=== PATIENT | male | born 1995 | race Caucasian/White ===

== ENCOUNTER 2017-07-15 12:15 | Emergency (ER) | payer MEDICAID ==
[~2017-07-15] VITALS: Ht 185.4 cm; Wt 72.7 kg
[~2017-07-15 12:15] MED LIST: LORTA5 PO
[2017-07-15 12:16] VITALS: BP 116/64; PULSE 89; RESP 18; TEMP 98.5; O2SAT 98
[2017-07-15] MEDS ORDERED: ONDANSETRON ODT 4 MG TAB PO ONE (12:45)
--- NOTE | 2017-07-15 12:56 | PD ---
HPI Chief Complaint: Cold / Flu Symptoms Time Seen by Provider: 12:41 Travel History International Travel<30 days: No Contact w/Intl Traveler<30days: No Traveled to known affect area: No History of Present Illness HPI 21-year-old male brought in with his mom for 2 day history of fever, chills, cough, body aches, and vomiting last night and this morning. Patient states it started Saturday with high fever although he does not know how high, and progressed until he is today. States he has not been able to keep anything down today, but he was able to take ibuprofen at 10:00 this morning. Patient currently is afebrile. He has no specific abdominal pain he continues to feel nauseous. He has a dry hacking cough but otherwise no difficulty breathing. He has no known drug allergies. [facility] Past Medical History Medical History: Denies Significant Hx Developmental Delay: No Immunizations Current: Yes Social History Alcohol Use: No Tobacco Use: No Substance Use: No Allergies-Medications (Allergen,Severity, Reaction): Coded Allergies: No Known Allergies (Unverified , 04/22/15) Reported Meds & Prescriptions Reported Meds & Active Scripts Active No Active Prescriptions or Reported Medications Review of Systems Except as stated in HPI: all other systems reviewed are Neg General / Constitutional: Positive: Fever, Chills Eyes: No: Visual changes HENT: Positive: Headaches, Sore Throat, Rhinitis, Rhinorrhea, Congestion, No: Vertigo, Lightheadedness, Nosebleed, Neck Stiffness, Neck Pain, Dental Difficulties, Earache Cardiovascular: No: Chest Pain or Discomfort Respiratory: Positive: Cough, No: Shortness of Breath, Wheezing Gastrointestinal: Positive: Nausea, Vomiting, No: Diarrhea, Abdominal Pain Genitourinary: No: Dysuria Musculoskeletal: No: Pain Skin: No Rash Neurologic: No: Weakness Psychiatric: No: Depression Endocrine: No: Polydipsia Hematologic/Lymphatic: No: Easy Bruising Physical Exam Narrative GENERAL: Patient appears ill but not septic SKIN: Warm and dry. Mild decreased pallor. No diaphoresis. No rash. Normal turgor. HEAD: Atraumatic. Normocephalic. EYES: Pupils equal and round. No scleral icterus. No injection or drainage. ENT: No nasal bleeding, whitish clear nasal discharge. Mucous membranes pink and moist. Posterior pharynx is unremarkable. No significant tonsillitis. Uvula is midline. TMs are clear bilaterally. NECK: Trachea midline. Supple and nontender. CARDIOVASCULAR: Regular rate and rhythm. RESPIRATORY: No accessory muscle use. Clear to auscultation. Breath sounds equal bilaterally. GASTROINTESTINAL: Abdomen soft, non-tender, nondistended. Hepatic and splenic margins not palpable. MUSCULOSKELETAL: Extremities without clubbing, cyanosis, or edema. No obvious deformities. NEUROLOGICAL: Awake and alert. No obvious cranial nerve deficits. Motor grossly within normal limits. Five out of 5 muscle strength in the arms and legs. Normal speech. PSYCHIATRIC: Appropriate mood and affect; insight and judgment normal. Data Data Last Documented VS Vital Signs Date Time Temp Pulse Resp B/P (MAP) Pulse Ox O2 Delivery O2 Flow Rate FiO2 07/15/17 12:16 98.5 89 18 116/64 (81) 98 Room Air Orders Orders Ondansetron Odt (Zofran Odt) (07/15/17 12:45) Oseltamivir (Tamiflu) (07/15/17 13:00) [facility] Medical Decision Making Medical Screen Exam Complete: Yes Emergency Medical Condition: Yes Differential Diagnosis Febrile illness. Influenza. Nausea and vomiting. Narrative Course Patient is presumed to have influenza. Patient is given 4 mg Zofran ODT p.o. Given his first dose of Tamiflu 75 mg p.o. now. Patient is given a fluid challenge p.o. Further medical workup was not felt warranted at this time. Patient be treated with Tamiflu 75 mg twice daily 5 days. Patient also continued on Zofran 4 mg every 6 hours as needed nausea #12 Patient is to rest, push fluids, take Tylenol and ibuprofen as needed, and school note is given. Patient is to return if symptoms worsen as needed. Diagnosis Primary Impression: Influenza Referrals: Primary Care Physician Patient Instructions: General Instructions, Influenza (DC) Departure Forms: School Release Return to School Date: Jul 19, 2017 Please excuse from school until (free text option): Patient has the flu and she will remain out of school until fever free for greater than 24 hours. Additional Instructions: Patient is presumed to have influenza. Patient is given 4 mg Zofran ODT p.o. Given his first dose of Tamiflu 75 mg p.o. now. Patient is given a fluid challenge p.o. Further medical workup was not felt warranted at this time. Patient be treated with Tamiflu 75 mg twice daily 5 days. Patient also continued on Zofran 4 mg every 6 hours as needed nausea #12 Patient is to rest, push fluids, take Tylenol and ibuprofen as needed, and school note is given. Patient is to return if symptoms worsen as needed. Med/Other Pt SpecificInfo: Prescription(s) given Scripts No Active Prescriptions or Reported Meds Disposition: 01 DISCHARGE HOME Condition: Stable Miguel Mcnair Jul 15, 2017 12:56
[2017-07-15] MEDS ORDERED: OSEL75 PO (12:57)
[2017-07-15] MEDS ORDERED: ZOFR4TAB PO (12:57)
[2017-07-15] MEDS ORDERED: OSELTAMIVIR PHOSPHATE 75 MG CAP PO ONE (13:00)
== END 2017-07-15 13:33 | disposition home or self-care (01) ==
LOC: NEPD 12:15
DX: J11.1 Influenza due to unidentified influenza virus with other respiratory manifestations (principal)
CPT/HCPCS: 99283